=== PATIENT | female | born 1950 | race Caucasian/White ===

== ENCOUNTER 2017-04-18 14:43 | Outpatient (CLI) | payer MEDICARE, OTHER ==
[2017-04-18] MEDS ORDERED: Gadobenate Dimeglumine 529 MG/1 ML (20ML VIAL) ONE (16:39)
--- NOTE | 2017-04-18 16:48 | MRI ---
PRE AND POST CONTRAST ENHANCED MR IMAGES OF THE LUMBAR SPINE: Date: 04-18-17 Comparison: 06-20-07 Technique: Multiplanar, multisequence pre and post contrast enhanced MRI images of the lumbar spine obtained. FINDINGS: T12-L1: Unremarkable. L1-2: There is mild facet hypertrophy. No significant degree of central or neural foraminal narrowin g is seen. L2-3: Mild facet hypertrophy is seen. No significant degree of central or neural foraminal narrowing is seen. There is an approximately 11 x 10 x 4 mm area of soft tissue density in the left L2 lateral recess. This demonstrates central area of hypodensity on T1 weighted sequences with mild peripheral rim of e nhancement. This may represent an extruded disc fragment migrating upward from the L2-3 disc space i nto the left L2 lateral recess compressing the left L2 nerve root. L3-4: There is some disc desiccation. Bilateral facet and ligamentum flavum hypertrophy is seen. Thi s results in a mild to moderate central stenosis. The neural foramen are patent. L4-5: There is fusion of the L4-5 vertebra using the left sided pedicle screws. The central canal an d neural foramen are patent. L5-S1: There is interval development of irregularity and degeneration of the L5-S1 endplates. There is disc desiccation. There is interval development of a broad based disc osteophyte complex. Facet h ypertrophy is seen. This overall results in mild central and lateral recess stenosis. The neural for amen demonstrate some encroachment, moderate on the right and mild on the left. IMPRESSION: Apparent extruded disc fragment in the left L2 lateral recess likely migrating upwards from the L2-3 disc space. POS: [facility]
== END 2017-04-18 14:44 | disposition home or self-care (01) ==
LOC: MRI 14:43
PROVIDERS: ATTEND Nurse Practitioner Family
DX: M51.16 Intervertebral disc disorders with radiculopathy, lumbar region (principal)
CPT/HCPCS: 72158; A9579

== ENCOUNTER 2017-10-24 14:31 | Outpatient (CLI) | payer MEDICARE, OTHER | END 2017-10-24 14:32 | disposition home or self-care (01) | LOC: BICRAD 14:31 | PROVIDERS: ATTEND Anesthesiology Pain Medicine | DX: R07.9 Chest pain, unspecified (principal) ==

== ENCOUNTER 2019-02-26 10:34 | Outpatient (CLI) | payer MEDICARE, OTHER ==
--- NOTE | 2019-02-26 13:45 | BD ---
DEXA BONE DENSITOMETRY: (Dual energy x-ray absorptiometry) DATE: 02/26/2019 HISTORY: 69-year old white female for age-related, post-menopausal, osteoporosis screening. weight: 123 lbs height: 64 in. Age of menopause: 57 COMPARISON: None available. FINDINGS: The bone mineral density (BMD) is given in grams per square centimeter (g/cm2): RIGHT HIP: BMD (g/cm^2) T score Z score Femoral neck: 0.954 0.9 2.6 Total: 1.106 1.3 2.7 LEFT HIP: BMD (g/cm^2) T score Z score Femoral neck: 0.949 0.9 2.5 Total: 1.040 0.8 2.1 FRAX WHO fracture risk assessment tool: 10 year fracture risk* Major osteoporotic fracture: 5.4 % Hip fracture: 0.1 % Reported risk factors: US (), neck BMD = 0.949 (g/cm^2), BMI = 21.1. *Fracture probability is calculated for an untreated patient. Fracture probability may be lower if th e patient has received treatment. IMPRESSION: The bone mineral density of the femoral neck is normal. Fracture risk is not increased.
== END 2019-02-26 10:35 | disposition home or self-care (01) ==
LOC: BICMAMMO 10:34
PROVIDERS: ATTEND Internal Medicine Rheumatology
DX: M81.0 Age-related osteoporosis without current pathological fracture (principal)
CPT/HCPCS: 77080

== ENCOUNTER 2019-05-14 08:25 | Outpatient (CLI) | payer MEDICARE, OTHER ==
--- NOTE | 2019-05-14 11:23 | MRI ---
MRI CERVICAL SPINE WITHOUT CONTRAST: INDICATIONS: History of disorders of the intervertebral disk space at C5-C6. COMPARISON: Prior MRI cervical spine dated 09/06/2014. TECHNIQUE: Multiplanar, multisequence MR images were obtained of the cervical spine without IV contrast. FINDINGS: There is mucosal thickening in both sphenoid sinuses. There is partial effusion involving the right m astoid air cells. There is slight retrolisthesis of C5 on C6 and slight anterolisthesis of C4 on C5 w hich appears to have developed in the interim, likely degenerative in nature. The craniocervical junction appears within normal limits. C2-C3: There is no appreciable central canal or neural foraminal narrowing. There is mild facet joint degenerative change. C3-C4: There is moderate left and mild right facet joint degenerative change but no appreciable centr al canal or neural foraminal narrowing. C4-C5: There is moderate to severe right and mild left facet joint degenerative change. There is unco vertebral hypertrophy. There is mild right neural foraminal narrowing. This has developed in the inte rim. C5-C6: There is an asymmetric to the left broad-based bulge. There is a residual left paracentral pro trusion. There is moderate to severe left neural foraminal narrowing. There is mild central canal [place]. There is mild right neural foraminal narrowing. C6-C7: There is a broad based bulge with facet joint degenerative change but no appreciable central c anal or neural foraminal narrowing. C7-T1: There is no appreciable central canal or neural foraminal narrowing. IMPRESSION: 1. Worsening disk degenerative and facet osteoarthritic change at C5-C6. There is an asymmetric left broad based disk bulge with superimposed left paracentral protrusion causing worsening moderate to se juan left neural foraminal narrowing. There is also worsening mild central canal narrowing and mild r ight neural foraminal narrowing due to the disk degenerative and facet degenerative change at this le jane. 2. New mild right neural foraminal narrowing at C4-C5 due to facet hypertrophy and uncovertebral hype rtrophy. POS: [facility]
== END 2019-05-14 08:26 | disposition home or self-care (01) ==
LOC: BICMRI 08:25
PROVIDERS: ATTEND Anesthesiology Pain Medicine
DX: M51.16 Intervertebral disc disorders with radiculopathy, lumbar region (principal); M50.122 Cervical disc disorder at C5-C6 level with radiculopathy; M47.26 Other spondylosis with radiculopathy, lumbar region; M48.02 Spinal stenosis, cervical region; Z87.891 Personal history of nicotine dependence
CPT/HCPCS: 72141

== ENCOUNTER 2020-11-28 10:20 | Outpatient (CLI) | payer MEDICARE, OTHER | END 2020-11-28 10:21 | disposition home or self-care (01) | LOC: BICRAD 10:20 | PROVIDERS: ATTEND Anesthesiology Pain Medicine | DX: M16.12 Unilateral primary osteoarthritis, left hip (principal) ==

== ENCOUNTER 2025-06-11 10:50 | Outpatient (CLI) | payer MEDICARE | END 2025-06-11 10:51 | disposition home or self-care (01) | LOC: BICMAMMO 10:50 | PROVIDERS: ATTEND Internal Medicine Rheumatology | DX: M81.0 Age-related osteoporosis without current pathological fracture (principal) | CPT/HCPCS: 77080 ==